=== PATIENT | female | born 2000 | race American Indian/Alaskan Native ===

== ENCOUNTER 2020-12-24 22:39 | Emergency (ER) | payer SELFPAY ==
[2020-12-25] MEDS ORDERED: ONDANSETRON 4 MG/2 ML INJ IV ONE ×2 (00:28→02:21)
[2020-12-25] MEDS ORDERED: MORPHINE 4 MG/1 ML INJ IV ONE (00:28)
[2020-12-25 00:50] LABS: Basophils % (Auto) 0.3 % (0.0-1.8); Eosinophils % (Auto) 0.1 % (0.0-4.3); Hemoglobin 10.3 gm/dl (10.1-14.3); Lymphocytes # (Auto) 0.7 K/mm3 (1.2-5.4); Lymphocytes % (Auto) 7.8 % (13.4-35.0); Mean Corpuscular HGB Conc 33 % (30-34); Mean Corpuscular Volume 79 fl (79-97); Monocytes # (Auto) 0.4 K/mm3 (0.0-0.8); Monocytes % (Auto) 4.9 % (0.0-7.3); Platelet Count 260 K/mm3 (140-440); Red Blood Count 3.94 M/mm3 (3.65-5.03); Red Cell Distribution Width 15.4 % (13.2-15.2)
[2020-12-25 00:55] LABS: Bilirubin,Urine NEG (Negative); Blood,Urine NEG (Negative); Color,Urine Yellow (Yellow); Mucus,Urine FEW /HPF; Protein,Urine <15 mg/dL mg/dL (Negative); Urobilinogen,Urine < 2.0 mg/dL (<2.0)
[2020-12-25 01:11] LABS: Alanine Aminotransferase 14 units/L (7-56); Albumin 4.4 g/dL (3.9-5); Blood Urea Nitrogen 8 mg/dL (7-17); Calcium 8.8 mg/dL (8.4-10.2); Hemolysis Index 0
[2020-12-25 01:14] LABS: BUN/Creatinine Ratio 11
--- NOTE | 2020-12-25 02:11 | Cat Scan Report ---
CT abdomen pelvis w con INDICATION: Lower abdominal pain. TECHNIQUE: All CT scans at this location are performed using CT dose reduction for ALARA by means of automated e xposure control. COMPARISON: None available. FINDINGS: Lung bases are clear of acute disease. Gallbladder is collapsed, with no obvious stones. Liver, splee n, pancreas, kidneys and adrenals appear negative. Abdominal aorta is normal in size. No adenopathy. Pelvis Appendix is thought to be identified and normal. However, there is abnormal fluid accumulation in the inferior peritoneum. Uterus, ovaries and urinary bladder appear unremarkable. There is also minimal free fluid in the dependent pelvis. No obvious bowel abnormalities, but there is slight free fluid in the lower abdomen bilaterally. IMPRESSION: 1. Mild ascites in the lower abdomen, as well as free fluid in the dependent pelvis. Findings suggest inflammatory process, but the exact site is not known. Appendix appears normal. Signer Name: Mark Peralta MD Signed: 12/25/2020 2:06 AM Workstation Name: [id number]
[2020-12-25] MEDS ORDERED: cefTRIAXone/NS 1 GM/50 ML 1 GM/50 ML BAG IV ONE (02:19)
[2020-12-25] MEDS ORDERED: AZITHROMYCIN 250 MG TAB PO ONE (02:19)
[2020-12-25] MEDS ORDERED: KETOROLAC 30 MG/1 ML INJ IV ONE (02:20)
--- NOTE | 2020-12-25 02:28 | Emergency Department Report ---
ED Female HPI - General Chief complaint: Abdominal Pain Stated complaint: ABDOMINAL PAIN/VOMITING Source: patient Mode of arrival: Ambulatory Limitations: No Limitations - History of Present Illness Initial comments: Patient is a nulliparous 20-year-old -[place] female with no past medical history presents to the ED with complaint of acute onset persistent severe suprapubic pain with nausea and vomiting for the last 8 hours. Patient states that the pain started 30 minutes after having sexual intercourse and has been constant and persistent. Patient states that the pain is sharp and stabbing and gets worse with movement or palpation. Patient denies vaginal bl eeding, dysuria, urinary frequency and urgency, dyspareunia, low back pain, chest pain, shortness of breath, fever, chills, diarrhea, change in vision, heavy lifting or traumatic injury. MD Complaint: pelvic pain, other (Nausea and vomiting) -: Sudden, hour(s) (8) Location: suprapubic Radiation: non-radiating Severity: severe Severity scale (0 -10): 9 Quality: cramping, sharp, aching Consistency: constant Improves with: none Worsens with: intercourse, movement Are you Now?: No Last Menstrual Period: 12/19/20 EDC: 09/25/21 Associated Symptoms: denies other symptoms, vaginal discharge, abdominal pain, nausea/vomiting. denies: vaginal bleeding, fever/chills, headaches, loss of appetite, dysuria, hematuria, rash, shortness of breath, syncope, weakness - Related Data Sexually active: Yes : 0 Para: 0 A: 0 Previous Rx's Medication Instructions Recorded Last Taken Type Doxycycline Hyclate 100 mg PO Q12H #20 tablet. 12/25/20 Unknown Rx Ibuprofen [Motrin] 600 mg PO Q8H PRN #30 tablet 12/25/20 Unknown Rx Ondansetron [Zofran Odt] 4 mg PO Q8HR PRN #15 tab.rapdis 12/25/20 Unknown Rx metroNIDAZOLE [Flagyl] 500 mg PO Q12HR #20 tab 12/25/20 Unknown Rx Allergies Allergy/AdvReac Type Severity Reaction Status Date / Time No Known Allergies Allergy Unverified 12/24/20 23:16 ED Review of Systems ROS: Stated complaint: ABDOMINAL PAIN/VOMITING Other details as noted in HPI Constitutional: denies: chills, fever Eyes: denies: eye pain, eye discharge, vision change ENT: denies: ear pain, throat pain Respiratory: denies: cough, shortness of breath, wheezing Cardiovascular: denies: chest pain, palpitations Endocrine: no symptoms reported Gastrointestinal: abdominal pain (suprapubic), nausea, vomiting. denies: diarrhea Genitourinary: discharge. denies: urgency, dysuria Musculoskeletal: denies: back pain, joint swelling, arthralgia Skin: denies: rash, lesions Neurological: denies: headache, weakness, paresthesias Psychiatric: denies: anxiety, depression Hematological/Lymphatic: denies: easy bleeding, easy bruising ED Past Medical Hx - Past Medical History Previous Medical History?: No - Surgical History Past Surgical History?: No - Social History Smoking Status: Never Smoker - Medications Home Medications: Home Medications Medication Instructions Recorded Confirmed Last Taken Type Doxycycline Hyclate 100 mg PO Q12H #20 tablet. 12/25/20 Unknown Rx Ibuprofen [Motrin] 600 mg PO Q8H PRN #30 tablet 12/25/20 Unknown Rx Ondansetron [Zofran Odt] 4 mg PO Q8HR PRN #15 tab.rapdis 12/25/20 Unknown Rx metroNIDAZOLE [Flagyl] 500 mg PO Q12HR #20 tab 12/25/20 Unknown Rx ED Physical Exam - General Limitations: No Limitations General appearance: alert, in no apparent distress - Head Head exam: Present: atraumatic, normocephalic, normal inspection - Eye Eye exam: Present: normal appearance, PERRL, EOMI Pupils: Present: normal accommodation - ENT ENT exam: Present: normal exam, normal orophraynx, mucous membranes moist, TM's normal bilaterally, normal external ear exam - Neck Neck exam: Present: normal inspection, full ROM - Respiratory Respiratory exam: Present: normal lung sounds bilaterally. Absent: respiratory distress, wheezes, rales, rhonchi, chest wall tenderness, accessory muscle use, decreased breath sounds, other - Cardiovascular Cardiovascular Exam: Present: normal rhythm, tachycardia, normal heart sounds. Absent: systolic murmur, diastolic murmur, rubs, gallop - GI/Abdominal GI/Abdominal exam: Present: soft, tenderness (Palpable suprapubic tenderness), guarding, normal bowel sounds. Absent: rebound, hyperactive bowel sounds, hypoactive bowel sounds, organomegaly, mass - External exam: Present: normal external exam Speculum exam: Present: vaginal discharge, cervical discharge (Thick greenish- yellow discharge) Bi-manual exam: Present: cervical motion tendernes (With positive General +), adnexal tenderness, uterine tenderness, other (Female RN millinery designer Ms. Fermin present during the pelvic exam) - Extremities Exam Extremities exam: Present: normal inspection, full ROM, normal capillary refill - Back Exam Back exam: Present: normal inspection, full ROM. Absent: tenderness, CVA tenderness (R), CVA tenderness (L), muscle spasm, vertebral tenderness - Neurological Exam Neurological exam: Present: alert, oriented X3, CN II-XII intact, normal gait, reflexes normal - Psychiatric Psychiatric exam: Present: normal affect, normal mood, anxious - Skin Skin exam: Present: warm, dry, intact, normal color. Absent: rash ED Course Vital Signs 12/24/20 23:17 Temperature 99.3 F Pulse Rate 109 H Respiratory 18 Rate Blood Pressure 105/73 O2 Sat by Pulse 100 Oximetry ED Medical Decision Making - Lab Data Result diagrams: 12/25/20 00:28 12/25/20 00:28 - Radiology Data [facility] [address] [place] [address] Cat Scan Report Signed Patient: HOA SAN MR#: [id number] : 2000 Acct:[id number] Age/Sex: 20 / F ADM Date: 12/24/20 Loc: ED Attending Dr: Ordering Physician: MARYCHUY NICOLAS Date of Service: 12/25/20 Procedure(s): CT abdomen pelvis w con Accession Number(s): [id number] cc: MARYCHUY NICOLAS CT abdomen pelvis w con INDICATION: Lower abdominal pain. TECHNIQUE: All CT scans at this location are performed using CT dose reduction for ALARA by means of automated exposure control. COMPARISON: None available. FINDINGS: Lung bases are clear of acute disease. Gallbladder is collapsed, with no obvious stones. Liver, spleen, pancreas, kidneys and adrenals appear negative. Abdominal aorta is normal in size. No adenopathy. Pelvis Appendix is thought to be identified and normal. However, there is abnormal fluid accumulation in the inferior peritoneum. Uterus, ovaries and urinary bladder appear unremarkable. There is also minimal free fluid in the dependent pelvis. No obvious bowel abnormalities, but there is slight free fluid in the lower abdomen bilaterally. IMPRESSION: 1. Mild ascites in the lower abdomen, as well as free fluid in the dependent pelvis. Findings suggest inflammatory process, but the exact site is not known. Appendix appears normal. Signer Name: Mark Peralta MD Signed: 12/25/2020 2:06 AM Workstation Name: [id number] Transcribed By: TM Dictated By: Mark Peralta MD Electronically Authenticated By: Mark Peralta MD Signed Date/Time: 12/25/20205 DD/ 6 TD/TT: - Medical Decision Making This is a nulliparous 20-year-old -[place] female with no past medical history presents to the ED with complaint of acute onset persistent severe suprapubic pain with nausea and vomiting for the last 8 hours. Patient states that the pain started 30 minutes after having sexual intercourse and has been constant and persistent. Patient states that the pain is sharp and stabbing and gets worse with movement or palpation. In the ED, patient is alert and oriented x3 and is not in distress. Patient appears to be in significant pain, crying during the physical exam. Lab test results were reviewed and are all nonactionable. Abdomen pelvis CT scan with contrast showed mild ascites in the lower abdomen, as well as free fluid in the dependent pelvis. Findings suggest inflammatory process, but the exact site is not known. Appendix appears normal. Pelvic exam in the presence of female RN millinery designer Ms. Fermin showed cervical motion tenderness with positive chandelier sign, and bilateral adnexal tenderness consistent acute pelvic inflammatory disease. Patient was treated in the ED with Rocephin and azithromycin empirically for PID. Chlamydia and gonorrhea test results are pending. The wet prep test was positive for Gardnere lla vaginalis and trichomonas. Patient was therefore treated in the ED for trichomonas with 2 g of Flagyl p.o. x1. On reevaluation, patient's pain is well controlled medications. Patient will discharge home on pain medications and antibiotics and was advised to follow-up with [facility] physician in 5 to 7 days for reevaluation, and also consider following up with [facility] for further STD testing including HIV and syphilis. Patient was also advised to safe sexual practices and to ensure that her sexual partner also gets evaluated and treated at the health department for suspected STD. - Differential Diagnosis Acute PID; UTI; ovarian cyst; ; appendicitis Critical care attestation.: If time is entered above; I have spent that time in minutes in the direct care of this critically ill patient, excluding procedure time. ED Disposition Clinical Impression: Acute pelvic inflammatory disease (PID), Sexually transmitted disease (STD), Trichomonas vaginalis infection, Bacterial vaginosis Disposition: TO HOME OR SELFCARE Is pt being admited?: No Does the pt Need Aspirin: No Condition: Stable Instructions: Pelvic Inflammatory Disease, [id number], Abdominal Pain (ED), Bacterial Vaginosis (ED), Bacterial Vaginosis, [id number], Trichomoniasis Additional Instructions: All lab test results were reviewed and are all nonactionable except for wet prep test that was positive for Gardnerella vaginalis which is bacterial causes bacterial vaginosis, also positive for trichomonas which is an STD. All your symptoms are consistent with acute pelvic inflammatory disease which is mainly caused by STD causing bacteria, commonly trichomonas, chlamydia and gonorrhea. Therefore take medication with food, drink plenty of fluids and follow-up with the [facility] for further STD testing including HIV and syphilis. Ensure that your sexual partner gets treated at the health department as well. Observe safe sexual practices to prevent STDs. Return to the ED immediately if symptoms get worse. Prescriptions: Doxycycline Hyclate 100 mg PO Q12H #20 tablet. metroNIDAZOLE [Flagyl] 500 mg PO Q12HR #20 tab Ibuprofen [Motrin] 600 mg PO Q8H PRN #30 tablet PRN Reason: Pain Ondansetron [Zofran Odt] 4 mg PO Q8HR PRN #15 tab.rapdis PRN Reason: Nausea Referrals: [facility] [Outside] - 3-5 Days [facility] [Provider Group] - 3-5 Days Forms: STI Treatment and Prevention Time of Disposition: 02:33 Print Language: TAMAZIGHT
[2020-12-25] MEDS ORDERED: metroNIDAZOLE 500 MG TAB PO ONE (03:19)
[2020-12-25 03:57] VITALS: BP 102/61
== END 2020-12-25 03:56 | disposition home or self-care (01) ==
LOC: ED 22:39
DX: N76.0 Acute vaginitis (principal); B96.89 Other specified bacterial agents as the cause of diseases classified elsewhere; A59.9 Trichomoniasis, unspecified; A64 Unspecified sexually transmitted disease; N73.0 Acute parametritis and pelvic cellulitis; Z79.899 Other long term (current) drug therapy
CPT/HCPCS: 36415; 74177; 80053; 81001; 83690; 84703; 85025; 87210; 87591; 96365; 96375; 96376; 99284; J0696; J1885; J2270; J2405; Q9967